=== PATIENT | male | born 1965 | race Caucasian/White ===

== ENCOUNTER 2018-07-07 11:38 | Inpatient (IN) | payer MEDICARE ==
[~2018-07-07] VITALS: Ht 177.8 cm; Wt 81.0 kg
[~2018-07-07 11:38] MED LIST: ASA81 MG PO; ASPIRIN EC81 MG PO; BACTRIM DS TAB1 EACH PO; CLOPIDOGREL75 MG PO; COLACE100 M1 PO; CRESTOR10 MG; FUROSEMIDE40 MG PO; HYDROCHLOROTHIA25 MG PO; LEVEMIR100 UNIT/1 SQ; LISINOPRIL10 MG PO; LOSARTAN POTAS100 MG PO; LYRICA50 MG; METFORMIN HCL500 MG PO; METOPROLOL SUCC50 MG PO; NIFEDICAL XL30 MG PO; NIFEDIPINE ER30 M1 PO; NITROGLYCERIN0.4 MG SL; NITROQUICK0.4 M1 SL; NOVOLOG MI100 UNIT/1; NOVOLOG100 UNITS1 SQ; NP THYROID60 MG PO; PROCARDIA XL90 MG PO; TRILIPIX135 MG PO; Z.0.AMLODIPINE BESY1 PO; Z.0.GLIPIZIDE5 MG PO; Z.0.HYDROCHLOROTH12. PO; Z.0.LISINOPRIL40 MG PO; Z.0.METOPROLOL SUC10 PO; Z.0.METOPROLOL SUCC2 PO; Z.2.METFORMIN HCL500 PO; [UNRECOGNIZED DRUG - OTHER] PO
--- OUTSIDE RECORDS SUMMARY | 2018-07-07 11:42 | XMS REPORT | Summary of Care ---
Author Author [facility] Organization [facility] Address Unknown Phone Unavailable Encounter [facility](FIN) [id number] Date(s): 02/08/16 - 03/08/16 [facility] [address] [place] [address]- Discharge Disposition: Home or Self Care Attending Physician: Jossie Martinez MD Referring Physician: Jossie Martinez MD Vital Signs No data available for this section Problem List No data available for this section Allergies, Adverse Reactions, Alerts No data available for this section Medications No data available for this section Results No data available for this section Immunizations No data available for this section Procedures No data available for this section Social History No data available for this section Assessment and Plan No data available for this section
--- OUTSIDE RECORDS SUMMARY | 2018-07-07 11:42 | XMS REPORT | Summary of Care ---
Author Author [facility] Address Unknown Phone Unavailable Encounter [facility] [place]) [id number] Date(s): 01/08/17 - 02/06/17 [facility] [place], [place] [address] Discharge Disposition: Home or Self Care Attending Physician: Ilana Angelo MD Referring Physician: Ilana Angelo MD Vital Signs Most recent to 1 oldest [Reference Range]: Current Weight 109.091 kg (01/08/17 6:52 PM) Blood Pressure 144/93 mmHg [90-140/60-90 mmHg] *HI* (01/08/17 6:52 PM) Peripheral Pulse 64 bpm Rate [60-100 bpm] (01/08/17 6:52 PM) Problem List No data available for this [...]
--- OUTSIDE RECORDS SUMMARY | 2018-07-07 11:42 | XMS REPORT | Continuity of Care Document ---
Author Author Johanne mihaela [facility] Address Unknown Phone Unavailable Problems Problem Status Onset Date Classification Date Reported Comments Source G71.0 Active 12/31/2016 [facility] WOUND Active 03/10/2016 [facility] DX: S81.802A=UNSPECIFIED OPEN WOUND, LEF Active 02/18/2016 [facility] UNSPECIFIED OPEN WOUND, LEFT LOWER LEG, Active [facility] OTHER SPECIFIED PERIPHERAL VASCULAR DISE Active [facility] MIXED HYPERLIPIDEMIA Active [facility] OLD MYOCARDIAL INFARCTION Active [facility] Medications Medication Details Route Status Patient Instructions Ordering Provider Order Date Source Allergies, Adverse Reactions, Alerts Substance Category Reaction Severity Reaction type Status Date Reported Comments Source Immunizations Immunization Date Given Site Status Last Updated Comments Source Results Order Name Results Value Reference Range Date Interpretation Comments Source Ext Lower Arterial bilat w pressure US Ext Lower Arterial bilat w pressure US Please refer to the heart lab report, located under vascular in [facility]. 03/04/2016 - - Electronically Signed by: Thaddeus Naqvi 03/06/16 12:02 FINAL REPORT [facility] Ext Lower Venous Doppler Bilat US Ext Lower Venous Doppler Bilat US Ext Lower Venous Doppler Bilat US CLINICAL HX: E78.2 Mixed hyperlipidemia I25.10 Atherosclerotic heart disease of [place] coronary artery without angina pectoris; bilateral leg swelling COMPARISON: none TECHNIQUE: Snowden scale imaging, compression techniques and spectral analysis were utilized to evaluate the deep venous system of both lower extremities from the inguinal ligament to the popliteal fossa. FINDINGS: There is adequate compression, respiratory variability, and appropriate response to augmentation in the CFV, FV and popliteal veins in both thighs. The junction of the profunda vein to the SFV is patent bilaterally. Posterior tibial trunk and the saphenous vein demonstrate normal compressibility. IMPRESSION: No evidence for deep vein thrombosis in the examined veins of both lower extremities. SL: [id number] 03/04/2016 - - Read by: Kwame Young MD Dictated Date/time: 03/04/16 13:00 Electronically Signed by: Kwame Young MD 03/04/16 13:04 FINAL REPORT [facility] Vital Signs Vital Sign Value Date Comments Source Heart Rate 64 01/09/2017 [facility] Systolic (mm Hg) 144 01/09/2017 [facility] Diastolic (mm Hg) 93 01/09/2017 [facility] Encounters Location Location Details Encounter Type Encounter Number Reason For Visit Attending Provider ADM Date DC Date Status Source [facility] [id number] Jossie Martinez 02/08/2016 03/09/2016 [facility] Outpatient [id number] Jossie Juan 03/04/2016 03/05/2016 [facility] Wound Care [id number] Angelina Jimenez 03/10[facility]2016 [facility] [id number] Ilana Angelo 01/08/2017 02/07/2017 [facility] Procedures Procedure Code Date Perfomer Comments Source
--- OUTSIDE RECORDS SUMMARY | 2018-07-07 11:42 | XMS REPORT | Summary of Care ---
Author Author [facility] Organization [facility] Address Unknown Phone Unavailable Encounter [facility]([place]) [id number] Date(s): 03/04/16 - 03/04/16 [facility] [address] [place] [address]- [phone] Discharge Disposition: Home or Self Care Attending [...]
--- OUTSIDE RECORDS SUMMARY | 2018-07-07 11:42 | XMS REPORT | Clinical Summary ---
Author Author [facility] Organization [facility] Address Unknown Phone Unavailable Care Team Providers Care Field Geologist Name Role Phone David Aleman PCP Allergies No Known Allergies Medications End Date Status Medication Sig Dispensed Refills Start Date Active aspirin (ECOTRIN) 81 MG Take 162 mg 0 enteric coated tablet by mouth 2 (two) times a day. Active coQ10, ubiquinol, 200 mg Take 1 tablet 0 capsule by mouth daily. Active furosemide (LASIX) 40 mg Take 40 mg by 0 tablet mouth 2 (two) times a day. Active hydroCHLOROthiazide Take 12.5 mg 0 (MICROZIDE) 12.5 mg by mouth 2 capsule (two) times a day. Active lisinopril Take 40 mg by 0 (PRINIVIL,ZESTRIL) 40 mg mouth 2 (two) tablet times a day. Active metoprolol succinate XL Take 100 mg 0 (TOPROL-XL) 100 mg 24 hr by mouth 2 tablet (two) times a day. Active multivitamin (THERAGRAN) Take 1 tablet 0 tablet by mouth daily. Active NIFEdipine CC (ADALAT CC) Take 90 mg by 0 90 MG 24 hr tablet mouth 2 (two) times a day. Active insulin ASPART (NovoLOG) Inject under 0 100 unit/mL injection the skin 3 (three) times a day before meals. Sliding scale depending on blood sugar. Active omega-3 acid ethyl esters Take 1 g by 0 (LOVAZA) 1 gram capsule mouth daily. Active clopidogrel (PLAVIX) 75 Take 75 mg by 0 mg tablet mouth daily. Active rosuvastatin (CRESTOR) 10 Take 10 mg by 0 MG tablet mouth daily. Active gabapentin (NEURONTIN) Take 100 mg 0 100 mg capsule by mouth nightly. Active LEVEMIR FLEXTOUCH 100 INJECT 90 45 mL 3 unit/mL (3 mL) insulin UNITS UNDER 7 pen THE SKIN TWICE DAILY Active ascorbic acid, vitamin C, Take 4,000 mg 0 (VITAMIN C) 500 MG tablet by mouth daily. Active cholecalciferol, vitamin Take 1 tablet 0 D3, (VITAMIN D3) 5,000 by mouth unit tablet daily. Active POTASSIUM BICARBONATE, Take 1,053 mg 0 BULK, MISC by mouth daily. Active MAGNESIUM OXIDE/MAGNESIUM Take 1 tablet 0 (MAGNESIUM, OXIDE/AA by mouth CHELATE, ORAL) daily. Active ZINC ORAL Take 3,000 mg 0 by mouth daily. Active metFORMIN (GLUCOPHAGE) Take 1,000 mg 0 1,000 mg tablet by mouth. Active thyroid, pork, (ARMOUR Take 1 tablet 90 tablet 3 THYROID) 90 mg (90 mg total) 8 tabletIndications: by mouth See Acquired hypothyroidism Admin Instructions. Active gabapentin (NEURONTIN) TAKE 2 180 capsule 0 300 mg capsule CAPSULES(600 9 MG) BY MOUTH THREE TIMES DAILY Active LEVEMIR FLEXTOUCH U-100 INJECT 90 45 mL 3 INSULN 100 unit/mL (3 mL) UNITS UNDER 9 insulin penIndications: THE SKIN Type 2 diabetes mellitus TWICE DAILY with hyperglycemia, with long-term current use of insulin ([facility]) 09/08/2017 Discontinued gabapentin (NEURONTIN) Take 2 180 capsule 3 300 mg capsule capsules (600 7 mg total) by mouth 3 (three) times a day for 30 days. 12/25/2017 Discontinued THYROID,PORK (ARMOUR Take 1 tablet 0 THYROID ORAL) by mouth daily. Dosage unknown 07/28/2017 Discontinued insulin ASPART (NovoLOG) Inject under 0 100 unit/mL injection the skin 3 (three) times a day before meals. 05/04/2018 Discontinued LEVEMIR FLEXTOUCH U-100 INJECT 90 45 mL 0 INSULN 100 unit/mL (3 mL) UNITS UNDER 8 insulin penIndications: THE SKIN Type 2 diabetes mellitus TWICE DAILY with hyperglycemia, with long-term current use of insulin ([facility]) 11/13/2017 Discontinued ARMOUR THYROID 90 mg TAKE 1 TABLET 90 tablet 0 tablet BY MOUTH 8 DIRECTED 12/25/2017 Discontinued gabapentin (NEURONTIN) TAKE 2 180 capsule 0 300 mg capsule CAPSULES(600 8 MG) BY MOUTH THREE TIMES DAILY 05/25/2018 lidocaine 5 % gel Apply twice 1 Tube 1 a day. 8 Active Problems Problem Noted Date Hypertriglyceridemia 09/28/2017 Cellulitis 01/22/2017 Angina at rest 12/16/2016 Overview: One episode at night Chronic left shoulder pain 12/16/2016 High ankle sprain of left lower extremity 03/13/2016 Brachial neuritis 01/17/2016 Class 1 obesity due to excess calories with serious comorbidity and body 01/17/2016 mass index (BMI) of 34.0 to 34.9 in adult Chronic sinusitis 01/17/2016 Closed fracture of humerus 01/17/2016 Atypical nevus 01/17/2016 Edema of lower extremity 01/17/2016 Hyperlipidemia 01/17/2016 Hypogonadism in male 01/17/2016 Hypothyroidism 01/17/2016 Iron deficiency anemia 01/17/2016 Non-toxic multinodular goiter 01/17/2016 Type 2 diabetes mellitus with circulatory disorder 01/17/2016 Uncontrolled type 2 diabetes mellitus with diabetic autonomic neuropathy, 01/17/2016 with long-term current use of insulin Ulcer of lower extremity 01/17/2016 Wound of skin 01/17/2016 Coronary arteriosclerosis in [place] artery 01/17/2016 Dyspnea 01/17/2016 Limb-girdle muscular dystrophy, 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 Overview: c.701G>A (p.G234E) & c.1714C>T (p.R572W) as a compound heterozygote Resolved Problems Problem Noted Date Resolved Date Chronic adrenal insufficiency 01/17/2016 10/02/2017 Encounters Care Team Description Date Type Specialty Ilana Angelo MD 06/25/2018 Telephone Neurology Yessenia Stuart MD 05/24/2018 Telephone Endocrinology Yessenia Stuart MD 05/21/2018 Telephone Endocrinology Nella Quiñones MA thyroid biopsy results 05/20/2018 Documentation Endocrinology Yessenia Stuart MD Non-toxic multinodular goiter 05/19/2018 Hospital Radiology Encounter Yessenia Stuart MD Canceled (Patient) 05/14/2018 Hospital Radiology Encounter Ilana Angelo MD Cervical radicular pain 05/07/2018 Hospital Radiology Encounter Nella Quiñones MA Type 2 diabetes mellitus with hyperglycemia, with long-term current use of insulin (HCC) 05/04/2018 Orders Only Endocrinology Yessenia Stuart MD Non-toxic multinodular goiter (Primary Dx) 04/29/2018 Orders Only Endocrinology Yessenia Stuart MD Uncontrolled type 2 diabetes mellitus with diabetic neuropathy, with long-term current use of insulin (HCC) (Primary Dx); Coronary arteriosclerosis in [place] artery; Acquired hypothyroidism; Non-toxic multinodular goiter; Class 1 obesity due to excess calories with serious comorbidity and body mass index (BMI) of 34.0 to 34.9 in adult; Hypertriglyceridemia; Vitamin D deficiency 04/27/2018 Office Visit Endocrinology Yessenia Stuart MD Multiple thyroid nodules 04/27/2018 Hospital Radiology Encounter Ilana Angelo MD 03/03/2018 Refill Neurology Cristiane Ngo, RN 01/28/2018 Telephone Neurology Cristiane Ngo RN 01/01/2018 Telephone Neurology Ilana Angelo MD 12/31/2017 Telephone Neurology Ilana Angelo MD LGMD (limb-girdle muscular dystrophy) (Primary Dx); Ulcer of right leg, limited to breakdown of skin (HCC); Type 2 diabetes mellitus with diabetic peripheral angiopathy without gangrene, without long-term current use of insulin (HCC) 12/25/2017 Office Visit Neurology Ilana Angelo MD 12/23/2017 Telephone Neurology Ilana Angelo MD 12/22/2017 Telephone Neurology Ilana Angelo MD 12/15/2017 Telephone Neurology Ilana Angelo MD 12/15/2017 Telephone Neurology Ilana Angelo MD 12/15/2017 Orders Only Neurology Ilana Angelo MD Cervical radicular pain (Primary Dx) 12/15/2017 Orders Only Neurology Ilana Angelo MD patient message 12/15/2017 Documentation Neurology Nella Quiñones MA Acquired hypothyroidism (Primary Dx) 11/13/2017 Orders Only Yessenia Brewer MD 11/11/2017 Refill Endocrinology Yessenia Stuart MD 11/10/2017 Refill Endocrinology Yessenia Stuart MD Uncontrolled type 2 diabetes mellitus with other specified complication, without long-term current use of insulin (Primary Dx); Type 2 diabetes mellitus with other circulatory complication, with long-term current use of insulin; Acquired hypothyroidism; Vitamin D deficiency; Mixed hyperlipidemia; Hypertriglyceridemia; Multiple thyroid nodules; Class 2 obesity due to excess calories with serious comorbidity and body mass index (BMI) of 36.0 to 36.9 in adult 09/28/2017 Office Visit Endocrinology Ilana Angelo MD 09/08/2017 Refill Neurology Ilana Angelo MD Edema of lower extremity (Primary Dx); Limb-girdle muscular dystrophy, type 2A; Uncontrolled type 2 diabetes mellitus with other specified complication, without long-term current use of insulin; Chronic left shoulder pain 07/28/2017 Office Visit Neurology Yessenia Stuart MD 07/19/2017 Refill Endocrinology after 07/06/2017 Family History * Patient is adopted Medical History Relation Name Comments Heart disease Brother Hypertension Brother Heart disease Mother biol mother has pacemaker Relation Name Status Comments Brother Mother Social History Date Tobacco Use Types Packs/Day Years Used Never Smoker Smokeless Tobacco: Never Used Alcohol Use Drinks/Week oz/Week Comments No Sex Assigned at Date Recorded Not on file Industry Job Start Date Occupation Not on file Not on file Not on file Travel End Travel History Travel Start No recent travel history available. Last Filed Vital Signs Time Taken Vital Sign Reading 05/19/2018 2:32 PM CDT Blood Pressure 143/88 05/19/2018 2:32 PM CDT Pulse 69 04/27/2018 1:15 PM [facility] Temperature 36.6 C (97.8 F) 05/19/2018 2:32 PM CDT Respiratory Rate 18 05/19/2018 2:32 PM CDT Oxygen Saturation 97% - Inhaled Oxygen - Concentration 04/27/2018 1:15 PM [facility] Weight 109 kg (241 lb) 04/27/2018 1:15 PM [facility] Height 177.8 cm (5' 10") 04/27/2018 1:15 PM [facility] Body Mass Index 34.58 Plan of Treatment Care Team Description Date Type Specialty Yessenia Stuart MD [address] [place], [place] [id number] 11/24/2018 Office Visit Endocrinology Health Maintenance Due Date Last Done Comments DIABETIC RETINAL EYE EXAM 1965 DIABETIC FOOT EXAM 12/20/1973 COLON CANCER SCREENING 12/20/2013 SHINGLES VACCINES (#1) 12/20/2013 INFLUENZA VACCINE 09/30/2018 Implants Device Identifier Shelf Expiration Date Model / Serial / Lot Implanted Type Area Manufactur er [id number] / / Catheter Supp Quick-Cross Str Tip Cardiovasc N/A: N/A SPECTRANET 5fr 0.035in 150cm 3.1fr - [id number] ular ICS Implanted: 03/06/2017 (Quantity not Implants CORPORATIO on file) N 09/29/2017 [id number] / / [id number] Stent Trnshptc Bili Plmz Gen Peripheral N/A: N/A CORDIS Bln-Xpndbl Unmntd 59x8mm - or Biliary VARGAS [id number] Stents ENDOVASCUL Implanted: 04/21/2016 (Quantity not AR on file) 01/29/2018 [id number] / / [id number] Stent Trnshptc Bili Plmz Gen Peripheral N/A: N/A CORDIS Bln-Xpndbl Unmntd 59x8mm - or Biliary VARGAS [id number] Stents ENDOVASCUL Implanted: 04/21/2016 (Quantity not AR on file) Procedures Comments Procedure Name Priority Date/Time Associated Diagnosis CYTOLOGY Routine 05/19/2018 (NON-GYNECOLOGICAL) 3:07 PM CDT REQUEST US THRYOID BIOPSY FNA Routine 05/19/2018 Non-toxic multinodular 2:36 PM CDT goiter MRI CERVICAL SPINE WO Routine 05/07/2018 Cervical radicular pain CONTRAST 4:00 PM [facility] US THYROID Routine 04/27/2018 Multiple thyroid nodules 3:37 PM [facility] POC GLYCOSYLATED Routine 04/27/2018 Uncontrolled type 2 HEMOGLOBIN (HGB A1C) HOME 2:00 PM [facility] diabetes mellitus with USE diabetic neuropathy, with long-term current use of insulin (HCC) POC GLUCOSE Routine 04/27/2018 Uncontrolled type 2 1:16 PM [facility] diabetes mellitus with diabetic neuropathy, with long-term current use of insulin (HCC) POC GLUCOSE Routine 09/28/2017 Uncontrolled type 2 10:22 AM CDT diabetes mellitus with other specified complication, without long-term current use of insulin after 07/06/2017 Results * Cytology (non-gynecological) request (05/19/2018 3:07 PM CDT) [facility] DEPARTMENT OF PATHOLOGY AND GENOMIC MEDICINE Cytology See link below for PDF Lab [facility] DEPARTMENT OF (non-gynecological) Report PATHOLOGY AND report GENOMIC MEDICINE Result status This is Final Report for [facility] DEPARTMENT OF [id number] PATHOLOGY AND GENOMIC MEDICINE Performing Organization Address City/State/Zipcode Phone Number [facility] DEPARTMENT OF [address] [place] [address] PATHOLOGY AND GENOMIC MEDICINE * US Thyroid Biopsy FNA (05/19/2018 2:36 PM CDT) Narrative Performed At EXAMINATION:US THYROID BIOPSY FNA [facility] CLINICAL HISTORY:E04.2 Nontoxic multinodular goiter, left-sided thyroid nodule (5-cm with calcifications) COMPARISON:None. COMMENTS: The procedure was discussed with the patient and verbal consent was obtained. The nodule was localized using ultrasonography. A site for needle entry was selected and the skin was prepped and draped in the usual sterile fashion. After local administration of 1% buffered lidocaine, serial 25-gauge fine-needle aspirations were obtained using ultrasound guidance. The specimens were reviewed with the pathologist and were deemed adequate. The patient tolerated the procedure without difficulty and was discharged home in satisfactory condition. The patient has been instructed to follow-up with Dr. Stuart for the results of the biopsy. EBL: None. Assistants: None. IMPRESSION: Successful ultrasound-guided thyroid biopsy. [facility]-[id number] Procedure Note [facility], Radiology Results Incoming - 05/19/2018 4:53 PM CDT EXAMINATION: US THYROID BIOPSY FNA CLINICAL HISTORY: E04.2 Nontoxic multinodular goiter, left-sided thyroid nodule (5-cm with calcifications) COMPARISON: None. COMMENTS: The procedure was discussed with the patient and verbal consent was obtained. The nodule was localized using ultrasonography. A site for needle entry was selected and the skin was prepped and draped in the usual sterile fashion. After local administration of 1% buffered lidocaine, serial 25-gauge fine-needle aspirations were obtained using ultrasound guidance. The specimens were reviewed with the pathologist and were deemed adequate. The patient tolerated the procedure without difficulty and was discharged home in satisfactory condition. The patient has been instructed to follow-up with Dr. Stuart for the results of the biopsy. EBL: None. Assistants: None. IMPRESSION: Successful ultrasound-guided thyroid biopsy. [facility]-[id number] Performing Organization Address City/State/Zipcode Phone Number [facility] [address] [place] [address] * MRI Cervical Spine Wo Contrast (05/07/2018 4:00 PM [facility]) Narrative Performed At [facility] EXAMINATION: MRI CERVICAL SPINE WO CONTRAST CLINICAL HISTORY: M54.12 Radiculopathycervical region, Neck paininitial exam, Radiculopathy COMPARISON:None TECHNIQUE: Multiplanar multisequence noncontrast enhanced examination was performed of the cervical spine. FINDINGS: No fracture. No subluxation. No suspicious osseous lesion. Mild marrow edema about the left C3-4 facet joint, degenerative. The cervicomedullary junction is normal in appearance. No spinal cord signal abnormality. No prevertebral edema or neck mass identified. Axial images through the disc spaces demonstrate the following: C1-C2: No significant spinal canal stenosis. C2-C3: Moderate to severe left neural foraminal and mild left subarticular zone stenosis secondary to uncovertebral and facet arthropathy. No significant spinal canal stenosis. C3-C4: Uncovertebral and facet arthropathy, with marrow edema about the left facet joint, and minimal disc bulge contributes to severe bilateral neural foraminal stenosis as well as mild spinal canal and moderate bilateral subarticular zone stenosis. C4-C5: Uncovertebral and facet arthropathy and minimal disc bulge contributes to severe bilateral neural foraminal stenosis as well as moderate to severe spinal canal and bilateral subarticular zone stenosis, with indentation of the spinal cord without edema. C5-C6: Uncovertebral facet arthropathy and minimal disc bulge contributes to severe bilateral neural foraminal stenosis as well as moderate spinal canal and moderate bilateral subarticular zone stenosis. C6-C7: Uncovertebral and facet arthropathy and small disc bulge contributes to severe bilateral neural foraminal stenosis as well as moderate spinal canal stenosis, severe right subarticular zone, and mild left subarticular zone stenosis. C7-T1: No significant posterior disc disease, spinal canal, subarticular zone, or neural foraminal stenosis. IMPRESSION: 1. Multilevel moderate to severe degenerative changes of the cervical spine, most notably at C3-4, C4-5, C5-6, and C6-7 as detailed above. [facility]-[id number] Procedure Note Interface, Radiology Results - 05/07/2018 7:36 PM [facility] EXAMINATION: MRI CERVICAL SPINE WO CONTRAST CLINICAL HISTORY: M54.12 Radiculopathy cervical region, Neck pain initial exam, Radiculopathy COMPARISON: None TECHNIQUE: Multiplanar multisequence noncontrast enhanced examination was performed of the cervical spine. FINDINGS: No fracture. No subluxation. No suspicious osseous lesion. Mild marrow edema about the left C3-4 facet joint, degenerative. The cervicomedullary junction is normal in appearance. No spinal cord signal abnormality. No prevertebral edema or neck mass identified. Axial images through the disc spaces demonstrate the following: C1-C2: No significant spinal canal stenosis. C2-C3: Moderate to severe left neural foraminal and mild left subarticular zone stenosis secondary to uncovertebral and facet arthropathy. No significant spinal canal stenosis. C3-C4: Uncovertebral and facet arthropathy, with marrow edema about the left facet joint, and minimal disc bulge contributes to severe bilateral neural foraminal stenosis as well as mild spinal canal and moderate bilateral subarticular zone stenosis. C4-C5: Uncovertebral and facet arthropathy and minimal disc bulge contributes to severe bilateral neural foraminal stenosis as well as moderate to severe spinal canal and bilateral subarticular zone stenosis, with indentation of the spinal cord without edema. C5-C6: Uncovertebral facet arthropathy and minimal disc bulge contributes to severe bilateral neural foraminal stenosis as well as moderate spinal canal and moderate bilateral subarticular zone stenosis. C6-C7: Uncovertebral and facet arthropathy and small disc bulge contributes to severe bilateral neural foraminal stenosis as well as moderate spinal canal stenosis, severe right subarticular zone, and mild left subarticular zone stenosis. C7-T1: No significant posterior disc disease, spinal canal, subarticular zone, or neural foraminal stenosis. IMPRESSION: 1. Multilevel moderate to severe degenerative changes of the cervical spine, most notably at C3-4, C4-5, C5-6, and C6-7 as detailed above. [id number] Performing Organization Address City/State/Zipcode Phone Number [facility] [address] [place] [address] * US Thyroid (04/27/2018 3:37 PM [facility]) Narrative Performed At EXAMINATION:US THYROID [facility] CLINICAL HISTORY:E04.2 Nontoxic multinodular goiter, follow-up thyroid nodules COMPARISON:None. TECHNIQUE: Transverse and longitudinal sonographic images of the thyroid gland were obtained. Grayscale and color Doppler images were also obtained. FINDINGS: RIGHT THYROID LOBE: 1.The right thyroid lobe measures 4.2 x 1.6 x 1.9 cm.It is heterogeneous in echotexture.There is a 1.6 x 1.2 cm calcified nodule in the right thyroid lobe that is stable when compared to July 05, 2014 . 2.There are no enlarged right neck lymph nodes. ISTHMUS: 1.The isthmus thickness measures 0.4 cm.. LEFT THYROID LOBE: 1.The left thyroid lobe measures 6.3 x 3.4 x 4.7 cm. It is heterogeneous in echotexture. There is a large hypoechoic lesion in the left thyroid lobe measuring 5.4 x 3.4 x 3.5 cm with internal calcifications. The lesion is increased in size relative to prior, previously measuring 3.7 x 3.5 x 3.5 cm. . 2.There are no enlarged left neck lymph nodes. IMPRESSION: 1.Enlarged thyroid gland. Interval increase in the size of a left thyroid lobe nodule with calcifications measuring 5.4 x 3.4 x 3.5 cm. Correlation with ultrasound-guided FNA of the left thyroid lobe lesion may be of benefit. 2.Stable right thyroid lobe nodule with rim calcification measuring 1.6 x 1.2 cm. ACR TI-RADS 0 points: TR1. Benign. No FNA. 2 points:TR2. Not suspicious. No FNA. 3 points: TR3. Mildly suspicious. FNA if > or=2.5 cm. Follow if > or=1.5 cm. 4-6 points: TR4. Moderately suspicious. FNA if > or=1.5 cm. Follow if > or=1 cm. 7 or more points: TR5. Highly suspicious. FNA if > or=1 cm. Follow if > or=0.5 cm. [id number] Procedure Note [facility], Radiology Results Incoming - 04/27/2018 4:47 PM [facility] EXAMINATION: US THYROID CLINICAL HISTORY: E04.2 Nontoxic multinodular goiter, follow-up thyroid nodules COMPARISON: None. TECHNIQUE: Transverse and longitudinal sonographic images of the thyroid gland were obtained. Grayscale and color Doppler images were also obtained. FINDINGS: RIGHT THYROID LOBE: 1. The right thyroid lobe measures 4.2 x 1.6 x 1.9 cm. It is heterogeneous in echotexture. There is a 1.6 x 1.2 cm calcified nodule in the right thyroid lobe that is stable when compared to July 05, 2014 . 2. There are no enlarged right neck lymph nodes. ISTHMUS: 1. The isthmus thickness measures 0.4 cm. . LEFT THYROID LOBE: 1. The left thyroid lobe measures 6.3 x 3.4 x 4.7 cm. It is heterogeneous in echotexture. There is a large hypoechoic lesion in the left thyroid lobe measuring 5.4 x 3.4 x 3.5 cm with internal calcifications. The lesion is increased in size relative to prior, previously measuring 3.7 x 3.5 x 3.5 cm. . 2. There are no enlarged left neck lymph nodes. IMPRESSION: 1. Enlarged thyroid gland. Interval increase in the size of a left thyroid lobe nodule with calcifications measuring 5.4 x 3.4 x 3.5 cm. Correlation with ultrasound-guided FNA of the left thyroid lobe lesion may be of benefit. 2. Stable right thyroid lobe nodule with rim calcification measuring 1.6 x 1.2 cm. ACR TI-RADS 0 points: TR1. Benign. No FNA. 2 points: TR2. Not suspicious. No FNA. 3 points: TR3. Mildly suspicious. FNA if > or=2.5 cm. Follow if > or=1.5 cm. 4-6 points: TR4. Moderately suspicious. FNA if > or=1.5 cm. Follow if > or=1 cm. 7 or more points: TR5. Highly suspicious. FNA if > or=1 cm. Follow if > or=0.5 cm. [facility]-[id number] Performing Organization Address City/State/Zipcode Phone Number [facility] [address] [place] [address] * POC GLYCOSYLATED HEMOGLOBIN (HGB A1C) HOME USE (04/27/2018 2:00 PM [facility]) POC Hemoglobin A1C 6.8 % Specimen Blood * POC glucose (04/27/2018 1:16 PM [facility]) Only the most recent of 2 results within the time period is included. POC glucose 55 65 - 100 Specimen Blood after 07/06/2017 Insurance Payer Benefit Subscriber ID Type Phone Address Plan / Group AETNA MEDICARE AETNA xxxxxxxx HMO MEDICARE HMO/PPO [facility] Advance Directives Patient has advance care planning documents, and code status on file. For more i nformation, please contact: Ty Joiner [address] [place] [address] Date Inactivated Comments Code Status Date Activated 02/02/2017 10:51 PM Full Code 01/23/2017 12:07 AM Code Status decision reached by: Patient
--- OUTSIDE RECORDS SUMMARY | 2018-07-07 11:42 | XMS REPORT | Summary of Care ---
Author Author [facility] Organization [facility] Address Unknown Phone Unavailable Encounter HQ Encntr_alias(FIN) [id number] Date(s): 03/10/16 - 04/08/16 [facility] [address] [place] [address]- Discharge Disposition: Home or Self Care Attending Physician: Angelina Jimenez MD Referring Physician: Angelina Jimenez MD Vital Signs No data available for [...]
[2018-07-07] MEDS ORDERED: SODIUM CHLORIDE 0.9% 1000ML 1,000 ML IV STA (12:03)
[2018-07-07] MEDS ORDERED: CEFTRIAXONE SOD 1 GM/NS 50 ML 50 ML IV STA (12:03)
[2018-07-07] MEDS ORDERED: IBUPROFEN 400 MG TAB PO STA (12:03)
[2018-07-07] MEDS ORDERED: ACETAMINOPHEN 325 MG TAB PO STA (12:03)
[2018-07-07] MEDS ORDERED: ALBUTEROL SULF 0.083% NEB SOLN 3 ML NEB NEB STA (12:03)
[2018-07-07] MEDS ORDERED: IPRATROPIUM BROMIDE 0.02% 2.5 ML NEB NEB STA (12:03)
[2018-07-07] MEDS ORDERED: ACETAMINOPHEN/CODEINE ELIX 120-12 MG/5 ML UDC NG ONE (12:15)
[2018-07-07] MEDS ORDERED: IBUPROFEN 600 MG TAB PO ONE (12:15)
[2018-07-07] MEDS ORDERED: DEXAMETHASONE SOD PHOS 10 MG/1 ML VIAL IM ONE (12:15)
[2018-07-07 13:03] LABS: BASOPHILS % 0.1 % (0.0-1.0); EOSINOPHILS # (AUTO) 0.1 (0.0-0.4); EOSINOPHILS % 0.4 % (0.0-6.0); HEMATOCRIT 41.9 % (38.2-49.6); LYMPHOCYTES # (AUTO) 0.9 (1.0-3.2); LYMPHOCYTES % 5.7 % (18.0-39.1); MEAN CORPUSCULAR HEMOGLOBIN 28.1 pg (28-32); MEAN CORPUSCULAR HGB CONC 33.4 g/dL (31-35); MEAN CORPUSCULAR VOLUME 84.1 fL (81-99); MONOCYTES # (AUTO) 0.8 (0.2-0.8); NEUTROPHILS # (AUTO) 13.2 (2.1-6.9); NEUTROPHILS % 87.9 % (38.7-80.0); PLATELET COUNT 230 x10e3/uL (140-360); RED BLOOD COUNT 4.98 x10e6/uL (4.3-5.7); RED CELL DISTRIBUTION WIDTH 16.3 % (11.7-14.4)
[2018-07-07 13:10] LABS: INR 0.88; PROTHROMBIN TIME 12.4 seconds (11.9-14.5)
[2018-07-07 13:11] LABS: PARTIAL THROMBOPLASTIN TIME 29.2 seconds (23.8-35.5)
[2018-07-07 13:18] LABS: ALANINE AMINOTRANSFERASE 69 IU/L (0-55); ALBUMIN 4.2 g/dL (3.5-5.0); ALBUMIN/GLOBULIN RATIO 1.1 (0.8-2.0); ALKALINE PHOSPHATASE 87 IU/L (40-150); ANION GAP 19.2 mmol/L (8-16); BLOOD UREA NITROGEN 22 mg/dL (7-26); BUN/CREATININE RATIO 35 (6-25); CALCIUM 10.9 mg/dL (8.4-10.2); CARBON DIOXIDE 27 mmol/L (22-29); CHLORIDE 95 mmol/L (98-107); CREATINE KINASE 156 IU/L (30-200); CREATININE, SERUM 0.62 mg/dL (0.72-1.25); EST GLOMERULAR FILTRATION RATE > 60 ML/MIN (60-); GLUCOSE 125 mg/dL (74-118); MAGNESIUM 1.6 MG/DL (1.3-2.1); POTASSIUM 3.2 mmol/L (3.5-5.1); SODIUM 138 mmol/L (136-145)
[2018-07-07 13:24] LABS: INFLUENZAE A&B ANTIGEN (RAPID) NEGATIVE (NEGATIVE); STREPTOCOCCUS GRP A ANTIGEN NEGATIVE (NEGATIVE)
[2018-07-07 13:32] LABS: B-TYPE NATRIURETIC PEPTIDE2 72.8 pg/mL (0-100)
[2018-07-07 14:05] LABS: BILIRUBIN,URINE NEGATIVE (NEGATIVE); CLARITY,URINE CLEAR (CLEAR); COLOR,URINE YELLOW (YELLOW); KETONES,URINE NEGATIVE (NEGATIVE); LEUKOCYTE ESTERASE ,URINE NEGATIVE (NEGATIVE); NITRITE,URINE NEGATIVE (NEGATIVE); PROTEIN,URINE DIPSTICK NEGATIVE (NEGATIVE); URINE UROBILINOGEN 0.2 mg/dL (0.2 - 1)
[2018-07-07 14:08] LABS: BACTERIA,URINE FEW /HPF; EPITHELIAL CELLS,URINE RARE /LPF; RBC,URINE 0-5 /HPF (0-5)
--- NOTE | 2018-07-07 15:02 | Diagnostic Imaging Report ---
EXAMINATION: CHEST SINGLE (PORTABLE) INDICATION: Possible infection. COMPARISON: None FINDINGS: TUBES and LINES: None. LUNGS: Low lung volumes. Central vascular congestion without evidence of pulmonary edema. Mild patchy left basilar opacity. No lobar consolidation. There is a calcified granuloma in the right upper lung. PLEURA: No pleural effusion or pneumothorax. HEART AND MEDIASTINUM: The cardiomediastinal silhouette is unremarkable. BONES AND SOFT TISSUES: No acute osseous abnormality. UPPER ABDOMEN: No free air under the diaphragm. IMPRESSION: Low lung volumes with patchy left basilar opacity likely atelectasis, although early pneumonia is possible in the appropriate clinical setting. Suggest follow-up chest radiograph in 6-8 weeks to assess for resolution. Signed by: Dr. Alayna Trejo MD on 07/07/2018 2:58 PM
--- OUTSIDE RECORDS SUMMARY | 2018-07-07 15:26 | XMS REPORT | Clinical Summary ---
Author Author [facility] Organization [facility] Address Unknown Phone Unavailable Care Team Providers Care Media Intern Name Role Phone David Aleman PCP Allergies [...] hyperglycemia, with long-term current use of insulin ([facility]) 09/08/2017 Discontinued gabapentin (NEURONTIN) Take [...] hyperglycemia, with long-term current use of insulin ([facility]) 11/13/2017 Discontinued ARMOUR THYROID 90 [...] Wound of skin 01/17/2016 Coronary arteriosclerosis in bad river band artery 01/17/2016 Dyspnea 01/17/2016 Limb-girdle muscular dystrophy, [...] insulin (HCC) (Primary Dx); Coronary arteriosclerosis in bad river band artery; Acquired hypothyroidism; Non-toxic multinodular goiter; Class [...] PM CDT Pulse 69 04/27/2018 1:15 PM NAIL POLISH BRUSH MACHINE FEEDER Temperature 36.6 C (97.8 F) 05/19/2018 2:32 PM CDT Respiratory Rate 18 05/19/2018 2:32 PM CDT Oxygen Saturation 97% - Inhaled Oxygen - Concentration 04/27/2018 1:15 PM NAIL POLISH BRUSH MACHINE FEEDER Weight 109 kg (241 lb) 04/27/2018 1:15 PM NAIL POLISH BRUSH MACHINE FEEDER Height 177.8 cm (5' 10") 04/27/2018 1:15 PM NAIL POLISH BRUSH MACHINE FEEDER Body Mass Index 34.58 Plan of Treatment Care Team Description Date Type Specialty Yessenia Stuart MD [address] [place], [place] [id number] 11/24/2018 Office Visit Endocrinology Health Maintenance Due [...] N/A SPECTRANET 5fr 0.035in 150cm 3.1fr - [id number] ular ICS Implanted: 03/06/2017 (Quantity not Implants CORPORATIO on file) N 09/29/2017 [id number] / / [id number] Stent Trnshptc Bili Plmz Gen Peripheral N/A: N/A CORDIS Bln-Xpndbl Unmntd 59x8mm - or Biliary VARGAS [id number] Stents ENDOVASCUL Implanted: 04/21/2016 (Quantity not AR on file) 01/29/2018 [id number] / / [id number] Stent Trnshptc Bili Plmz Gen Peripheral N/A: N/A CORDIS Bln-Xpndbl Unmntd 59x8mm - or Biliary VARGAS [id number] Stents ENDOVASCUL Implanted: 04/21/2016 (Quantity not AR on file) Procedures Comments Procedure Name Priority Date/Time Associated Diagnosis CYTOLOGY Routine 05/19/2018 (NON-GYNECOLOGICAL) 3:07 PM CDT REQUEST US THRYOID BIOPSY FNA Routine 05/19/2018 Non-toxic multinodular 2:36 PM CDT goiter MRI CERVICAL SPINE WO Routine 05/07/2018 Cervical radicular pain CONTRAST 4:00 PM NAIL POLISH BRUSH MACHINE FEEDER US THYROID Routine 04/27/2018 Multiple thyroid nodules 3:37 PM [employer] POL[employer] BR[employer] MACHINE FEEDER POC GLYCOSYLATED Routine 04/27/2018 Uncontrolled type 2 HEMOGLOBIN (HGB A1C) HOME 2:00 PM NAIL POLISH BRUSH MACHINE FEEDER diabetes mellitus with USE diabetic neuropathy, with long-term current use of insulin (HCC) POC GLUCOSE Routine 04/27/2018 Uncontrolled type 2 1:16 PM NAIL POL[employer] BRUSH MACHINE FEEDER diabetes mellitus with diabetic neuropathy, with long-term current use of insulin (HCC) POC GLUCOSE Routine 09/28/2017 Uncontrolled type 2 10:22 AM CDT diabetes mellitus with other specified complication, without long-term current use of insulin after 07/06/2017 Results * Cytology (non-gynecological) request (05/19/2018 3:07 PM CDT) [facility] DEPARTMENT OF PATHOLOGY AND GENOMIC MEDICINE Cytology See link below for PDF Lab [facility] DEPARTMENT OF (non-gynecological) Report PATHOLOGY AND report GENOMIC MEDICINE Result status This is Final Report for [facility] DEPARTMENT OF [id number] PATHOLOGY AND GENOMIC MEDICINE Performing Organization Address City/State/Zipcode Phone Number [facility] DEPARTMENT OF [address] [place] [address] PATHOLOGY AND GENOMIC MEDICINE * US Thyroid [...] Assistants: None. IMPRESSION: Successful ultrasound-guided thyroid biopsy. [facility]-[id number] Procedure Note [facility], Radiology Results Incoming - 05/19/2018 4:53 PM [...] Assistants: None. IMPRESSION: Successful ultrasound-guided thyroid biopsy. [facility]-[id number] Performing Organization Address City/State/Zipcode Phone Number [facility] [address] [place] [address] * MRI Cervical Spine Wo Contrast (05/07/2018 4:00 PM NAIL POLISH BRUSH MACHINE FEEDER) Narrative Performed At [facility] EXAMINATION: MRI CERVICAL [...] C4-5, C5-6, and C6-7 as detailed above. [facility]-[id number] Procedure Note Interface, Radiology Results - 05/07/2018 7:36 PM NAIL POLISH BRUSH MACHINE FEEDER EXAMINATION: MRI CERVICAL SPINE WO CONTRAST CLINICAL [...] C4-5, C5-6, and C6-7 as detailed above. [facility]-[id number] Performing Organization Address City/State/Zipcode Phone Number [facility] [address] [place] [address] * US Thyroid (04/27/2018 3:37 PM NAIL POLISH BRUSH MACHINE FEEDER) Narrative Performed At EXAMINATION:US THYROID [facility] [...] or=1 cm. Follow if > or=0.5 cm. [facility]-[id number] Procedure Note [facility], Radiology Results Incoming - 04/27/2018 4:47 PM NAIL POLISH BRUSH MACHINE FEEDER EXAMINATION: US THYROID CLINICAL HISTORY: E04.2 Nontoxic [...] or=1 cm. Follow if > or=0.5 cm. [facility]-[id number] Performing Organization Address City/State/Zipcode Phone Number [facility] [address] [place] [address] * POC GLYCOSYLATED HEMOGLOBIN (HGB A1C) HOME USE (04/27/2018 2:00 PM NAIL POLISH BRUSH MACHINE FEEDER) POC Hemoglobin A1C 6.8 % Specimen Blood * POC glucose (04/27/2018 1:16 PM NAIL POLISH BRUSH MACHINE FEEDER) Only the most recent of 2 results within the time period is included. POC glucose 55 65 - 100 Specimen Blood after 07/06/2017 Insurance Payer Benefit Subscriber ID Type Phone Address Plan / Group AETNA MEDICARE AETNA xxxxxxxx HMO MEDICARE HMO/PPO [facility] Advance Directives Patient has advance care planning documents, and code status on file. For more i nformation, please contact: Ty Joiner [address] [place] [address] Date Inactivated Comments Code Status Date Activated 02/02/2017 10:51 PM Full Code 01/23/2017 12:07 AM Code Status decision reached by: Patient
--- OUTSIDE RECORDS SUMMARY | 2018-07-07 15:26 | XMS REPORT ---
Author Author [facility] Address Unknown Phone Unavailable Care Team Providers Care Weaver [employer] Name Role Phone Britta GRAHAM Unavailable Unavailable Problems This patient has no known problems. Allergies, Adverse Reactions, Alerts This patient has no known allergies or adverse reactions. Medications This patient has no known medications. Results Test Description Test Time Test Comments Text Results Atomic Results Result Comments CHEST SINGLE (PORTABLE) 2018-07-07 14:55:00 [place] [address] Patient Name: AN CHING MR #: [id number] : 1965 Age/Sex: 52/M Req #: [id number] Adm Physician: Ordered by: ISRAEL CAMPBELL NP Report #: [id number] Location: ER Room/Bed: Procedure: [id number] DX/CHEST SINGLE (PORTABLE) Exam Date: Exam Time: REPORT STATUS: Signed EXAMINATION: CHEST SINGLE (PORTABLE) INDICATION: P ossible infection. COMPARISON: None FINDINGS: TUBES and LINES: None. LUNGS: Low lung volumes. Central vascular congestion without evidence of pulmonary edema. Mild patchy left basilar opacity. No lobar consolidation. There is a calcified granuloma in the right upper lung. PLEURA: No pleural effusion or pneumothorax. HEART AND MEDIASTINUM: The cardiomediastinal silhouette is unremarkable. BONES AND SOFT TISSUES: No acute osseous abnormality. UPPER ABDOMEN: No free air under the diaphragm. IMPRESSION: Low lung volumes with patchy left basilar opacity likely atelectasis, although early pneumonia is possible in the appropriate clinical setting. Suggest follow-up chest radiograph in 6-8 weeks to assess for resolution. Signed by: Dr. Ashlyn Trejo MD on 07/07/2018 2:58 PM Dictated By: ASHLYN TREJO MD [id number] Transcribed By: RUPERT on 07/07/18 [id number] COPY TO: Maykel CAMPBELL NP
[2018-07-07] MEDS ORDERED: AZITHROMYCIN 500MG/NS 250 ML 250 ML IV SCH (15:30)
[2018-07-07] MEDS ORDERED: DEXTROSE 50% SYRINGE 50 ML IV PRN ×2 (15:45→20:45)
[2018-07-07] MEDS ORDERED: INSULIN LISPRO 100 UNIT/1 ML 3ML VIAL SQ SCH (16:30)
[2018-07-07] MEDS ORDERED: NIFEDIPINE ER90 MG PO (16:35)
[2018-07-07] MEDS ORDERED: GABAPENTIN300 MG PO (16:35)
[2018-07-07] MEDS ORDERED: HYDROCHLOROTH12.5 MG PO (16:35)
[2018-07-07] MEDS ORDERED: BENZONATATE200 MG PO (16:35)
[2018-07-07] MEDS ORDERED: CRESTOR10 MG PO (16:35)
[2018-07-07] MEDS ORDERED: LOSARTAN POTASS50 MG PO (16:35)
[2018-07-07] MEDS ORDERED: MONTELUKAST SOD10 MG PO (16:35)
[2018-07-07] MEDS ORDERED: METOPROLOL SUC100 MG PO (16:35)
[2018-07-07] MEDS ORDERED: METFORMIN HCL1000 MG PO (16:35)
--- NOTE | 2018-07-07 17:00 | NUR ---
PATIENT REFUSED VITAL SIGN AND BLOOD GLUCOSE ASSESSMENT UPON ADMISSION.
[2018-07-07] MEDS ORDERED: ASPIRIN81 MG PO (18:44)
--- NOTE | 2018-07-07 18:46 | NUR ---
PATIENT ADMINISTERED HIS OWN LEVEMIR 90 UNITS
--- NOTE | 2018-07-07 18:50 | NUR ---
PATIENT ARRIVED ON THE UNIT PER STRETCHER- PATIENT IN STABLE CONDITION WITH NO S/S OF RESPIRATORY DISTRESS. NO PAIN VOICED. IV SALINE LOCKED. PATIENT'S PERSONAL JONAS HOSE APPLIED TO BILATERAL LOWER EXTREMITY. PATIENT REFUSED TO TURN FOR RN FOR RN TO ASSES SACRUM. PATIENT ALLOWED TO LOWER ONLY THE LEFT LOWER JONAS HOSE- HEALING ULCER PRESENT- NO DRAINAGE. PATIENT REFUSED FOR RN TO ASSESS BILATERAL FEET OR RIGHT LOWER LEG. PATIENT TURNED ON HIS RIGHT SIDE AND REFUSED WAFFLE PAD. PRESENT IN ROOM. CALL LIGHT IS WITHIN REACH, INSTRUCTED TO CALL FOR ASSISTANCE NEEDED.
[2018-07-07 19:39] VITALS: BP 110/57
[2018-07-07] MEDS: HYDROCODONE/APAP 7.5MG-325MG 1 EA TAB PO PRN (19:48)
--- NOTE | 2018-07-07 19:52 | NUR ---
PATIENT IN STABLE CONDITION WITH NO S/S OF RESPIRATORY DISTRESS. PAIN MEDICATION RECENTLY ADMINISTERED TO PATIENT. CALL LIGHT IS WITHIN REACH, PATIENT INSTRUCTED TO CALL FOR ASSISTANCE NEEDED. PRESENT IN ROOM. BEDSIDE REPORT GIVEN TO ONCOMING NURSE.
[2018-07-07 19:59] VITALS: BP 110/57
--- NOTE | 2018-07-07 19:59 | NUR ---
PT IS RESTING IN BED WITH AT BEDSIDE. NO RESPIRATORY DISTRESS NOTED. BED IN THE LOWEST ROOM, LOCKED, AND CALL LIGHT WITHIN REACH. WILL CONTINUE TO MONITOR.
[2018-07-07] MEDS ORDERED: DOCUSATE SODIUM 100 MG CAP PO PRN (20:30)
[2018-07-07] MEDS ORDERED: NITROGLYCERIN 0.4 MG SUBL SL PRN (20:30)
[2018-07-07] MEDS ORDERED: MAGNESIUM SULFATE 2GM/50ML 50 ML IV ONE (21:00)
[2018-07-07] MEDS ORDERED: HYDRALAZINE HCL 20 MG/ML VIAL IV PRN (21:00)
[2018-07-07] MEDS ORDERED: ONDANSETRON HCL INJ 2MG/ML 2ML 2 MG/ML VIAL IV PRN (21:00)
[2018-07-07 21:24] LABS: CREATINE KINASE MB 4.1 ng/mL (0-5.0)
[2018-07-07] MEDS ORDERED: BENZONATATE 200 MG PO SCH (22:00)
[2018-07-07] MEDS: MONTELUKAST SODIUM 10 MG TAB PO SCH (22:12)
[2018-07-07] MEDS: SIMVASTATIN 20 MG TAB PO SCH (22:12)
[2018-07-07] MEDS: GABAPENTIN 300 MG CAP PO SCH (22:12)
[2018-07-07] MEDS: BENZONATATE 100 MG CAP PO SCH (22:12)
[2018-07-07] MEDS: INSULIN REGULAR, HUMAN 100 UNIT/1 ML 3ML VIAL SQ SCH (22:13)
[2018-07-07] MEDS: ASPIRIN 81 MG ENTERIC COATED PO SCH (22:13)
[2018-07-07] MEDS: INSULIN GLARGINE 100 UNITS/ML VIAL SQ SCH (22:14)
[2018-07-07] MEDS: SODIUM CHLORIDE 0.9% 1000ML 1,000 ML IV SCH (23:26)
[2018-07-07] MEDS: ALBUTEROL SULF 0.083% NEB SOLN 3 ML NEB NEB SCH (23:56)
[2018-07-07] MEDS: IPRATROPIUM BROMIDE 0.02% 2.5 ML NEB NEB SCH (23:56)
[2018-07-08] VITALS (8 sets, daily range): BP systolic 112–165; BP diastolic 6–97
[2018-07-08] MEDS: ALBUTEROL SULF 0.083% NEB SOLN 3 ML NEB NEB SCH ×2 (03:00→06:30)
[2018-07-08] MEDS: SODIUM CHLORIDE 0.9% 1000ML 1,000 ML IV SCH (04:36)
[2018-07-08] MEDS: THYROID 60 MG TAB PO SCH (06:00)
[2018-07-08] MEDS ORDERED: ASPIRIN 81 MG ENTERIC COATED PO SCH (06:00)
[2018-07-08] MEDS: IPRATROPIUM BROMIDE 0.02% 2.5 ML NEB NEB SCH (06:30)
[2018-07-08] MEDS: BENZONATATE 100 MG CAP PO SCH ×3 (06:34→21:06)
--- NOTE | 2018-07-08 06:41 | NUR ---
PT REFUSE THYROID MEDICATION. PER PT HE WILL TAKE HIS OWN THROID MEDICATION. WILL CONTINUE TO MONITOR.
--- NOTE | 2018-07-08 06:58 | NUR ---
RECEIVED PATIENT RESTING IN BED. NO ACUTE DISTRESS NOTED. DENIES PAIN OR DISCOMFORT AT THIS TIME. CALL LIGHT WITHIN REACH. BED IN THE LOWEST POSITION.
[2018-07-08 07:11] LABS: BASOPHILS % 0.2 % (0.0-1.0); EOSINOPHILS % 0.2 % (0.0-6.0); HEMATOCRIT 37.7 % (38.2-49.6); HEMOGLOBIN 12.1 g/dL (14.0-18.0); LYMPHOCYTES # (AUTO) 1.2 (1.0-3.2); LYMPHOCYTES % 13.3 % (18.0-39.1); MEAN CORPUSCULAR HEMOGLOBIN 27.6 pg (28-32); MEAN CORPUSCULAR HGB CONC 32.1 g/dL (31-35); MEAN CORPUSCULAR VOLUME 85.9 fL (81-99); MONOCYTES # (AUTO) 0.5 (0.2-0.8); MONOCYTES % 5.8 % (4.4-11.3); NEUTROPHILS # (AUTO) 7.4 (2.1-6.9); NEUTROPHILS % 79.7 % (38.7-80.0); PLATELET COUNT 204 x10e3/uL (140-360); RED BLOOD COUNT 4.39 x10e6/uL (4.3-5.7); RED CELL DISTRIBUTION WIDTH 16.6 % (11.7-14.4)
[2018-07-08 07:36] LABS: ANION GAP 13.7 mmol/L (8-16); BLOOD UREA NITROGEN 21 mg/dL (7-26); BUN/CREATININE RATIO 40 (6-25); CALCIUM 9.7 mg/dL (8.4-10.2); CARBON DIOXIDE 28 mmol/L (22-29); CHLORIDE 98 mmol/L (98-107); CREATININE, SERUM 0.53 mg/dL (0.72-1.25); EST GLOMERULAR FILTRATION RATE > 60 ML/MIN (60-); GLUCOSE 148 mg/dL (74-118); SODIUM 137 mmol/L (136-145)
[2018-07-08 07:38] LABS: POTASSIUM 2.7 mmol/L (3.5-5.1)
[2018-07-08] MEDS ORDERED: POTASSIUM CHLORIDE 20 MEQ TAB CR PO STA (07:42)
[2018-07-08 07:52] LABS: PHOSPHORUS 2.4 MG/DL (2.3-4.7)
[2018-07-08] MEDS ORDERED: VITAMIN C1000 M2 PO (08:52)
[2018-07-08] MEDS: FAMOTIDINE 20 MG TAB PO SCH ×2 (08:52→18:00)
[2018-07-08] MEDS: METFORMIN HCL 500 MG TAB PO SCH ×2 (08:52→18:00)
[2018-07-08] MEDS ORDERED: MULTIVITAMINS1 EAC7 PO (08:52)
[2018-07-08] MEDS: GUAIFENESIN 600MG/DEXTROMETHORPHAN 30MG TABSR PO SCH ×2 (08:53→18:00)
[2018-07-08] MEDS: CLOPIDOGREL BISULFATE 75 MG TAB PO SCH (08:53)
[2018-07-08] MEDS: ASPIRIN 81 MG CHEW TAB PO SCH (08:53)
[2018-07-08] MEDS: METOPROLOL SUCCINATE 50 MG TAB XL PO SCH ×2 (08:53→18:00)
[2018-07-08] MEDS: CEFTRIAXONE SOD 1 GM/NS 50 ML 50 ML IV SCH (08:53)
[2018-07-08] MEDS: LOSARTAN POTASSIUM 100 MG TAB PO SCH (08:53)
[2018-07-08] MEDS: NIFEDIPINE CR 30 MG TAB PO SCH ×2 (08:53→18:00)
[2018-07-08] MEDS: INSULIN GLARGINE 100 UNITS/ML VIAL SQ SCH ×2 (08:56→21:06)
[2018-07-08] MEDS: INSULIN REGULAR, HUMAN 100 UNIT/1 ML 3ML VIAL SQ SCH (08:56)
[2018-07-08] MEDS ORDERED: SIMVASTATIN 40 MG TAB PO SCH (09:00)
[2018-07-08] MEDS ORDERED: NON-FORMULARY MEDICATION (Losartan Potassium 50 MG) PO SCH (09:00)
--- NOTE | 2018-07-08 10:25 | NUR ---
ST NOTE: Pt refused BSE at this time, asking MUSIC PUBLISHER to return at later time to complete BSE, family just entered room and pt in need of voiding. Handoff to YANG Escoto
[2018-07-08] MEDS: ALBUTEROL/IPRATROPIUM 3 ML NEB NEB SCH ×4 (11:00→23:10)
--- NOTE | 2018-07-08 11:55 | Diagnostic Imaging Report ---
EXAM: US THYROID DATE: 07/08/2018 12:00 AM INDICATION:Thyroid mass, thyroid cancer COMPARISON: None FINDINGS: Grayscale and color flow Doppler ultrasound of the thyroid was performed. Right lobe: 4.9 x 2.1 x 2.1 cm. Heterogeneous echotexture. Normal color flow vascularity. Nodules: Mid thyroid: 1.1 x 1.5 x 1.1 cm. Solid, hypoechoic, wide, smooth margins, peripheral calcifications with shadowing. TR4c. Left lobe: Surgically absent. Isthmus: Surgically absent Other: In the superficial soft tissues of the inferior left neck a linear fluid collection is seen measuring 0.3 cm thickness and 2.0 cm in length. IMPRESSION: 1. There is a right thyroid nodule which meets ACR criteria for fine needle aspiration biopsy. If possible, comparison with previous imaging is recommended. Otherwise, ultrasound guided right thyroid biopsy is recommended. 2. There is surgical absence of the left thyroid lobe and thyroid isthmus, reportedly within the past month. 3. There is a small linear fluid collection in the subcutaneous tissues of the lower left neck. In view of recent thyroid surgery, this may be residual postoperative fluid or seroma. ACR TI-RADS Lexicon: TR1, Benign: No FNA TR2, Not Suspicious: No FNA. TR3a (<1.5 cm): No follow-up. TR3b (1.5-2.5 cm), Mildly Suspicious: Follow at 1, 3, 5 years. TR3c (>2.5 cm), Mildly Suspicious: FNA. TR4a (<1.0 cm): No follow-up. TR4b (1.0-1.5 cm), Moderately Suspicious: Follow at 1, 2, 3, 5 years. TR4c (>1.5 cm), Moderately Suspicious: FNA. TR5a (<0.5 cm): No follow-up. TR5b (0.5-1.0 cm), Highly Suspicious: Follow at 1, 2, 3, 4, 5 years. TR5c (>1.0 cm), Highly Suspicious: FNA. Literature: ACR Thyroid Imaging, Reporting and Data System (TI-RADS): White Paper of the ACR TI-RADS Committee. J Am Brynn Radiol 2017. Signed by: Dr. Tim Miller M.D. on 07/08/2018 11:48 AM
[2018-07-08] MEDS ORDERED: POTASSIUM CHLORIDE 20 MEQ TAB CR PO SCH (12:00)
--- NOTE | 2018-07-08 12:59 | NUR ---
PER DR. DOREEN CORRALES TO DO CT WITHOUT CONTRAST.
[2018-07-08] MEDS: INSULIN LISPRO 100 UNIT/1 ML 3ML VIAL SQ SCH ×2 (13:06→16:30)
[2018-07-08 13:33] LABS: ABG HCO3 24 mmol/L (23-28); ABG PCO2 35 mmHg (41-51); ABG PH 7.44 (7.31-7.41); ABG PO2 74 mmHg (80-105)
--- NOTE | 2018-07-08 14:16 | Diagnostic Imaging Report ---
History:Pneumonia, basilar infiltrates possible PE Comparison studies: None Technique: Axial images were obtained through the maxillofacial region. Coronal and sagittal images reconstructed from the axial data. Intravenous contrast: None Dose modulation, iterative reconstruction, and/or weight based adjustment of the mA/kV was utilized to reduce the radiation dose to as low as reasonably achievable. Findings: Soft tissues: No abnormalities. Bones: No fractures or bone abnormalities. Orbits: Globes: Intact Extra or intraconal abnormalities: None. Paranasal sinuses: Clear Atherosclerotic calcifications of the carotid siphons IMPRESSION: 1. No facial abnormality or significant inflammatory changes of the paranasal sinuses Signed by: DR Ismael Cunningham M.D. on 07/08/2018 2:13 PM
[2018-07-08 14:35] LABS: CREATINE KINASE MB 3.7 ng/mL (0-5.0)
--- NOTE | 2018-07-08 14:58 | Diagnostic Imaging Report ---
EXAM: CT Chest without contrast. INDICATION: Basilar infiltrates, possible pulmonary embolism. COMPARISON: Chest radiograph 07/07/2018. TECHNIQUE: Chest was scanned utilizing a multidetector helical scanner from the lung apex through the level of the adrenal glands without administration of IV contrast. Coronal and sagittal reformations were obtained. Routine protocol was performed. RADIATION DOSE: Total DLP: 608.3 mGy*cm Dose modulation, iterative reconstruction, and/or weight based adjustment of the mA/kV was utilized to reduce the radiation dose to as low as reasonably achievable. COMPLICATIONS: None FINDINGS: LINES/ TUBES: None. LUNGS AND AIRWAYS: The central airways are patent. There is diffuse mild bronchial wall thickening. There is a 6 mm calcified granuloma in the right upper lobe. There is patchy consolidative opacity in the bilateral lower lobes with associated volume loss. There are 3 mm ground glass nodules in the left upper lobe on series 3, images 20, 23, and 31. PLEURA: The pleural spaces are clear. HEART AND MEDIASTINUM: The thyroid gland is normal. No mediastinal, hilar or axillary lymphadenopathy. No cardiomegaly or pericardial effusion. There is extensive coronary atherosclerosis. Moderate atherosclerotic calcifications within the thoracic aorta and branch vessels. UPPER ABDOMEN: Limited non-contrast views of the upper abdomen. Atherosclerotic vascular calcifications. Diffuse hepatic steatosis. BONES: No acute osseous abnormality. No suspicious lytic or blastic lesions. Degenerative changes of the visualized spine. SOFT TISSUES: Unremarkable. IMPRESSION: Patchy consolidative opacities in the lower lobes with associated volume loss likely represents atelectasis, although patchy pneumonia is possible in the appropriate clinical setting. Cannot evaluate for pulmonary embolism in the absence of IV contrast. Ground glass nodules measuring 3 mm in the left upper lobe, likely infectious or inflammatory. Follow-up chest CT is suggested in 3-6 months to assess for resolution. Hepatic steatosis. Signed by: Dr. Alayna Trejo MD on 07/08/2018 2:54 PM
--- NOTE | 2018-07-08 14:59 | Consultation ---
DATE OF CONSULTATION: Pulmonary Critical Care Consultation CHIEF COMPLAINT: Neuromuscular disease, persistent cough, and fevers. HISTORY OF PRESENT ILLNESS: The patient is a 52-year-old man. He has a history of muscular dystrophy that has gradually progressed since age 17. He now uses a wheelchair. He also uses CPAP at night. The patient reports persistent cough for 4 to 5 months. He notes some nasal congestion. He denies any heartburn or acid reflux. He was treated with antibiotics to Dr. Aleman. He reports suddenly developing a fever yesterday, which prompted him coming to the emergency department. PAST SURGICAL HISTORY: 1. Status post cardiac stent placement x2. 2. History of cholecystectomy in 2004. PAST MEDICAL HISTORY: 1. Muscular dystrophy. 2. Hypertension. 3. Diabetes. 4. Coronary artery disease. 5. Thyroid disease. SOCIAL HISTORY: The patient is not a smoker. He is not a drinker. ALLERGIES: THE PATIENT HAS NO KNOWN DRUG ALLERGIES. FAMILY HISTORY: Family history is significant for hypertension, diabetes, and heart disease. REVIEW OF SYSTEMS: The patient reports new onset of fever and chills yesterday. He notes some sinus congestion and persistent cough for several months. He does not complain of sore throat. He does have some difficulty swallowing and notes that pills occasionally get stuck in his lower esophagus. He does not complain of shortness of breath. He uses a CPAP at night. He is not having any abdominal pain or nausea or vomiting. He notes some leg swelling. He has neurological impairment related to his muscular dystrophy. PHYSICAL EXAMINATION: VITAL SIGNS: Blood pressure is 122/66 and the saturation is 96% on 2 L. The pulse is 70. HEENT: Shows no facial swelling or erythema. The nasal mucosa is normal. The oropharynx is normal. LYMPHATIC: Shows no submandibular, cervical, or supraclavicular adenopathy. CARDIAC: Reveals a regular rate and rhythm with normal S1 and S2. There are no murmurs or rubs. LUNGS: Auscultation of lungs reveals few rhonchi bilaterally. There are decreased breath sounds. ABDOMEN: Soft, nontender. There is no rebound or guarding. EXTREMITIES: Show 1 to 2+ leg edema. LABORATORY DATA: White blood cell count is 9 and hemoglobin is 12.1. The platelet count is 204. The potassium is 2.7 and the other electrolytes are within normal limits. Urinalysis is normal. Nasal swab for influenza is negative. Chest x-ray shows poor inspiratory effort with small lung volumes and atelectasis. IMPRESSION: 1. Chronic respiratory failure secondary to neuromuscular disease. 2. Fever and leukocytosis of unclear etiology. 3. Esophagitis, possibly secondary to gastroesophageal reflux. 4. Coronary artery disease. 5. Diabetes. 6. Hypertension. PLAN: 1. Continue current antibiotics and await culture results. 2. Speech Therapy evaluation. 3. H2 blockers with possible consultation to GI for odynophagia. 4. CT scan of the chest with and without IV contrast. 5. CT scan of the sinuses. 6. Venous duplex studies of the lower extremities. 7. Continue CPAP at night. 8. Arterial blood gas. Gregory Sarmiento MD [facility] /[id number]
--- NOTE | 2018-07-08 15:25 | NUR ---
Discontinuing physical therapy services due to patient refusal. Thank you Addendum: 07/08/18 at 1526 by Pedro Luis hooker PT Amended: Links added.
--- NOTE | 2018-07-08 19:14 | NUR ---
REPORT GIVEN TO ONCOMING NURSE, WALKING ROUNDS DONE. PATIENT IS RESTING IN BED. NO ACUTE DISTRESS NOTED. AT BEDSIDE. CALL LIGHT WITHIN REACH. BED IN THE LOWEST POSITION.
[2018-07-08] MEDS: HYDROCODONE/APAP 7.5MG-325MG 1 EA TAB PO PRN (19:40)
--- NOTE | 2018-07-08 19:45 | NUR ---
PT IS RESTING IN BED WITH AT BEDSIDE. NO RESPIRATORY DISTRESS NOTED. BED IN THE LOWEST POSITION, LOCKED, AND CALL LIGHT WITHIN REACH. WILL CONTINUE TO MONITOR.
[2018-07-08] MEDS: GABAPENTIN 300 MG CAP PO SCH (21:00)
[2018-07-08] MEDS: ASPIRIN 81 MG ENTERIC COATED PO SCH (21:05)
[2018-07-08] MEDS: SIMVASTATIN 20 MG TAB PO SCH (21:05)
[2018-07-08] MEDS: MONTELUKAST SODIUM 10 MG TAB PO SCH (21:05)
--- NOTE | 2018-07-08 21:06 | NUR ---
DURING MEDICATION ADMINISTRATION INFORMED THE PT THAT AROUND THREE AM I WILL COME IN TO DRAW HIS AM LABS. PER PT HE DOES NOT WANT TO BE DISTURBED. HE DID NOT SLEEP LAST NIGHT AND WANT TO GET SOME REST. WILL CONTINUE TO MONITOR.
[2018-07-08] MEDS ORDERED: AZITHROMYCIN 500MG/NS 250 ML 250 ML IV SCH (23:00)
[2018-07-09 00:13] VITALS: BP 137/79
[2018-07-09] MEDS: ALBUTEROL/IPRATROPIUM 3 ML NEB NEB SCH ×3 (03:01→11:00)
[2018-07-09 03:45] VITALS: BP 126/73
[2018-07-09] MEDS: THYROID 60 MG TAB PO SCH (06:00)
[2018-07-09] MEDS: BENZONATATE 100 MG CAP PO SCH (06:02)
[2018-07-09 07:25] LABS: BASOPHILS % 0.3 % (0.0-1.0); EOSINOPHILS # (AUTO) 0.2 (0.0-0.4); EOSINOPHILS % 3.1 % (0.0-6.0); HEMATOCRIT 37.1 % (38.2-49.6); HEMOGLOBIN 11.9 g/dL (14.0-18.0); LYMPHOCYTES # (AUTO) 2.3 (1.0-3.2); LYMPHOCYTES % 31.7 % (18.0-39.1); MEAN CORPUSCULAR HEMOGLOBIN 27.9 pg (28-32); MEAN CORPUSCULAR HGB CONC 32.1 g/dL (31-35); MEAN CORPUSCULAR VOLUME 86.9 fL (81-99); MONOCYTES # (AUTO) 0.7 (0.2-0.8); MONOCYTES % 8.9 % (4.4-11.3); NEUTROPHILS % 55.2 % (38.7-80.0); PLATELET COUNT 198 x10e3/uL (140-360); RED BLOOD COUNT 4.27 x10e6/uL (4.3-5.7); RED CELL DISTRIBUTION WIDTH 17.2 % (11.7-14.4)
--- NOTE | 2018-07-09 07:30 | NUR ---
Pt awake in bed. AOX4 and able to verbalize needs. Denies any pain at this time. O2 saturation is >97% on room air.
[2018-07-09 07:39] LABS: ANION GAP 13.9 mmol/L (8-16); BLOOD UREA NITROGEN 16 mg/dL (7-26); BUN/CREATININE RATIO 33 (6-25); CALCIUM 9.7 mg/dL (8.4-10.2); CARBON DIOXIDE 25 mmol/L (22-29); CHLORIDE 107 mmol/L (98-107); CREATININE, SERUM 0.49 mg/dL (0.72-1.25); EST GLOMERULAR FILTRATION RATE > 60 ML/MIN (60-); GLUCOSE 126 mg/dL (74-118); POTASSIUM 3.9 mmol/L (3.5-5.1); SODIUM 142 mmol/L (136-145)
[2018-07-09 08:00] VITALS: BP 130/79
[2018-07-09] MEDS: INSULIN LISPRO 100 UNIT/1 ML 3ML VIAL SQ SCH ×2 (08:00→13:04)
[2018-07-09 08:13] VITALS: BP 130/79
[2018-07-09] MEDS: INSULIN GLARGINE 100 UNITS/ML VIAL SQ SCH (08:30)
[2018-07-09] MEDS: LOSARTAN POTASSIUM 100 MG TAB PO SCH (08:45)
[2018-07-09] MEDS: ASPIRIN 81 MG CHEW TAB PO SCH (08:45)
[2018-07-09] MEDS: FAMOTIDINE 20 MG TAB PO SCH (08:45)
[2018-07-09] MEDS: METFORMIN HCL 500 MG TAB PO SCH (08:45)
[2018-07-09] MEDS: CEFTRIAXONE SOD 1 GM/NS 50 ML 50 ML IV SCH (08:45)
[2018-07-09] MEDS: CLOPIDOGREL BISULFATE 75 MG TAB PO SCH (08:46)
[2018-07-09] MEDS: GUAIFENESIN 600MG/DEXTROMETHORPHAN 30MG TABSR PO SCH (08:46)
[2018-07-09] MEDS: METOPROLOL SUCCINATE 50 MG TAB XL PO SCH (08:46)
[2018-07-09] MEDS: NIFEDIPINE CR 30 MG TAB PO SCH (08:46)
[2018-07-09] MEDS ORDERED: TESSALON PERLE100 MG PO (09:56)
[2018-07-09] MEDS ORDERED: CEFTIN PO (09:56)
[2018-07-09] MEDS ORDERED: AZITHROMYCIN PO (09:56)
[2018-07-09] MEDS ORDERED: MUCINEX DM ER1 EACH PO (09:56)
--- NOTE | 2018-07-09 10:51 | NUR ---
CM TO BEDSIDE TO DISCUSS IMM AND PATIENT'S RIGHTS IN DECISION MAKING REGARDING CARE. CM ANSWERED QUESTIONS. PATIENT VERBALIZED UNDERSTANDING OF DISCUSSION. SIGNATURE OBTAINED ON IMM - COPY TO CHART AND COPY LEFT AT THE BEDSIDE.
[2018-07-09 12:04] VITALS: BP 132/76
--- NOTE | 2018-07-09 12:45 | NUR ---
Discharge paperwork given to pt at this time. Pt verbalized understanding of all discharge instructions. Pt states pharmacist was in the room 30 minutes prior and discussed administration of discharge medications with him and he verbalized understanding of all discharge medications. Pt's will be here in an hour to pick him up.
[2018-07-09] MEDS ORDERED: ONDANSETRON HCL 4 MG ORAL DISINTEGRATING TAB PO PRN (13:30)
--- NOTE | 2018-07-09 13:32 | NUR ---
WOUND CARE CONSULTATION - INITIAL EVALUATION Patient admitted to ER from Home for +Cough for several weeks and worsening, Fever. HX: DM , Hypothyroidism, Muscular Dystrophy, Cardiac Stents, DM, recurrent VSU LLE. WC Consulted for evaluation and recommendation of LLE Ulcer. LABS: WBC7.31 HGB11.9 HCT37.1 Lymph%31.7 ALB4.3 PATIENT VISIT: Patient in bed AAOX4, Calm and Cooperative, Good Historian. Max assist to turn, Solis Score 13 Moderate PUP Active Alternating Pressure Air Mattress in Place and set to patient current weight. Patient to discharge today home Presents with irregular shaped discoloration area ([id number]) to LLE below calf/ Above Ankle on the Medial Aspect. Scattered scabbing noted. Area appears stable, No redness, no swelling, complains of some tenderness to ankle if lifted or held from area. Dryness and scaly skin over area noted as well. States to use VASHE to clean area at home when ulcer resurfaces and uses antibiotic ointment to treat area. Patient seems to be managing area well. Provided education on moisture management to assist with dryness. Verbalized understanding and engaged during conversation. IMPRESSION: LLE - medial Ankle - Recurrent VSU - Stable at this time. RECOMMENDATION: Okay to discharge from wound care standpoint. Thank you for consulting with Wound Care. Addendum: 07/09/18 at 1347 by Berny Chacko RN Amended: Links added.
--- NOTE | 2018-07-09 14:38 | Progress Note ---
DATE: SUBJECTIVE: The patient feels better. He has less coughing. He is not having fever. He has no chest pain. OBJECTIVE: VITAL SIGNS: The patient is afebrile. The blood pressure is 132/76 and saturation is 94% on 2 L. HEENT: Shows no facial swelling or erythema. The oropharynx is normal. LYMPHATIC: Shows no submandibular, cervical, or supraclavicular adenopathy. CARDIAC: Reveals regular rate and rhythm. Normal S1, S2. There are no murmurs or rubs heard. LUNGS: Auscultation of lungs reveals clear breath sounds bilaterally. There is no wheezing. ABDOMEN: Soft, nontender. There is no rebound or guarding. EXTREMITIES: Show no leg edema or calf tenderness. There is no cyanosis or clubbing. RADIOGRAPHIC DATA: Chest CT shows patchy opacities in the lung welch with some atelectasis. CT scan of the sinuses is negative. LABORATORY DATA: White blood cell count is 7.3 and hemoglobin is 11.9. BUN to creatinine ratio is normal. The other electrolytes are within normal limits. IMPRESSION: 1. Aspiration pneumonia with sepsis, present on admission. 2. Muscular dystrophy. 3. Esophagitis and possible gastroesophageal reflux. 4. Diabetes. 5. Hypertension. PLAN: 1. Continue current antibiotics. 2. Follow Speech Therapy recommendations. 3. Continue H2 blockers. 4. Physical Therapy as needed. Gregory Sarmiento MD [facility] /[id number]
--- NOTE | 2018-07-09 15:10 | NUR ---
Pt discharged home at this time. Pt was discharged with all personal belongings. Pt or family did not have any follow up questions regarding discharge. 0 s/s of acute distress noted at time of discharge.
--- NOTE | 2018-07-10 06:41 | Discharge Summary ---
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 Rule out urinary tract infection, rule out group A strep, rule out flu. HISTORY: The patient has a history of chronic left leg blood clot, history of venous stasis ulcers, hypertension, diabetes, CAD, hyperlipidemia, hypothyroidism, muscular dystrophy, malignant left lobe thyroid cyst, obstructive sleep apnea with use of CPAP. SURGICAL HISTORY: Twelve cardiac stents, left thyroid lobe removed, laparoscopic cholecystectomy. FAMILY HISTORY: The patient's mom had a permanent pacemaker. The patient's brother had cardiac stents and high blood pressure. HOSPITAL COURSE: A 52-year-old male, who presents to the ER after having cough for several months that has persisted and recently became worse. On admission, his temperature was 103.5. He saw his primary care doctor three times due to a cough. They changed his lisinopril to losartan, but he was not prescribed any antibiotics. On admission, the patient was started on Zithromax, Rocephin, Mucinex, DuoNeb. Pulmonary was consulted. Flu screen negative. Strep screen negative. Urine culture negative. Blood culture negative. The patient resumed on all other home medicines. After a couple days of Zithromax and Rocephin, the patient is feeling much better and is ready to go home. He will follow up with primary care in 1 to 2 weeks. On admission, his chest x-ray showed low lung volumes with patchy left basilar opacity. Ultrasound of the thyroid showed a right thyroid nodule. After discussing this finding with the patient, he says his imaging engineer and MD at [facility] is aware of the nodule and he is to follow up. CT of the maxillofacial sinuses was negative. CT of the chest showed patchy consolidative opacities in the lower lobes, ground-glass nodules measuring 3 mm in the left upper lobe. The patient was informed of these nodules and instructed to follow up for repeat CAT scan in 3 to 6 months. The patient will discharge home with Zithromax, Tessalon Perles, Ceftin, and Mucinex. He will resume all other home medicines. He understands discharge instructions and agrees to plan. Vital signs stable. The patient afebrile. Dictated by Cyndi Blanc NP MD TOMMY Green/JOHANA /[id number]
== END 2018-07-09 15:12 | disposition home or self-care (01) | DRG 871 ==
LOC: ER 11:38 → ERHOLD 15:24 → MED/SURG3 17:22
PROVIDERS: ADMIT Internal Medicine; ATTEND Internal Medicine
DX: A41.9 Sepsis, unspecified organism (principal); J18.9 Pneumonia, unspecified organism; I25.10 Atherosclerotic heart disease of native coronary artery without angina pectoris; E11.9 Type 2 diabetes mellitus without complications; E83.42 Hypomagnesemia; E83.51 Hypocalcemia; E78.5 Hyperlipidemia, unspecified; E03.9 Hypothyroidism, unspecified
CPT/HCPCS: 36415; 36600; 70486; 71045; 71250; 76536; 80048; 80053; 81001; 82550; 82553; 82805; 82948; 83036; 83518; 83605; 83735; 83880; 84100; 84443; 84484; 85025; 85610; 85730; 87040; 87070; 87086; 87400; 93005; 94640; 99284; J0456; J0696; J1100; J1815; J3475; J7030